=== PATIENT | female | born 1970 | race Caucasian/White ===

== ENCOUNTER 2016-08-20 21:33 | Day surgery (SDC) | payer BC ==
[2016-08-20] MEDS ORDERED: Sodium Chloride 0.9% 1,000 ML PRIMARY IV ONE (21:56)
[2016-08-20] MEDS ORDERED: GLUCAGON EMERGENCY KIT 1 MG KIT IVP ONE (21:57)
[2016-08-20] MEDS ORDERED: Lactated Ringers 1,000 ML PRIMARY IV ONE (22:44)
[2016-08-20] MEDS ORDERED: Lactated Ringers 1,000 ML PRIMARY IV SCH (22:45)
[2016-08-20] MEDS ORDERED: MIDAZOLAM 5 MG/1 ML ONE (23:07)
--- NOTE | 2016-08-20 23:10 | MINORPROC ---
Outpatient History & Physical Chief Complaint: Has food stuck in her throat Present Illness: Patient states 3 hours ago she is eating meat. She has a piece stuck in her throat. Dr. Camarillo (the ER doctor) has tried glucagon without any relief. She cannot handle her secretions. Patient has had this happen before but is always been able to get out Past History: Depression History: General: WNL, HEENT: WNL, Respiratory: WNL, Cardiovascular: WNL, Gastrointestinal: WNL Physical Exam: General: WNL, Head/Neck: WNL, Breasts: WNL, Chest/Lungs: WNL, Heart: WNL, Abdomen: WNL Home Medications: Home Medications Medication Instructions Recorded Confirmed Type Levocetirizine Dihydrochloride 5 mg PO DAILY #30 tab 09/21/15 Clinic [Xyzal] Bupropion HCl [Wellbutrin Xl] 1 tab PO DAILY #90 tab 10/26/15 Clinic Triamcinolone Acetonide 15 gm TOPICAL BID #1 tube 04/25/16 Clinic Methylphenidate HCl [Ritalin] 10 mg PO QID #120 tab NS 08/05/16 Clinic Allergies/Adverse Reactions: Allergies Allergy/AdvReac Type Severity Reaction Status Date / Time No Known Drug Allergies Allergy Unverified 07/13/16 11:44 Impression / Plan: Foreign body causing obstruction of esophagus Would recommend the patient have an EGD. The risk and potential complications of the procedure were discussed with the patient. We'll also remove the foreign body. They understood this. Also discussed alternatives diagnostic and treatment options. Will get the EGD set up at the first available date. Transfusion: Transfusion Not Anticipated Anesthesia Plans: Sedation
[2016-08-20] MEDS ORDERED: LANSOPRAZOLE 30 MG SOLUTAB PO ONE ×2 (23:28→23:59)
--- NOTE | 2016-08-20 23:40 | GEN.OPNOTE ---
EGD Operative Note Surgery Date: 08/20/16 Preoperative Diagnosis: Foreign body obstruction esophagus Postoperative Diagnosis: Form body obstructive esophagus. Gastritis Procedure: Esophagogastroduodenoscopy with removal of foreign body Surgeon: Chase Gamez MD Anesthesia Provider: Stacy Ovalle CRNA Anesthesia Type: MAC Indications: Patient is a piece of steak stuck in her throat Findings: Esophagus: Olympus video EGD scope inserted into the posterior pharynx. Under direct visualization esophagus. At the distal portion of esophagus patient had a piece of meat stuck. Is able to grasses of 3 prong grasper. We then removed the foreign body from the esophagus. I reintroduced the scope and was now able to push the remainder piece of meat into the stomach. She has what appears be acute inflammatory changes of the distal esophagus had the GE junction. No true stricture was noted GE Junction : GE junction proximal be 40 cm from the incisors Fundus : Scope retroflexed on itself revealing no abnormal pathology Body : The body of the stomach had acute inflammatory changes Prepyloric : Prepyloric areas free from disease Small Intestine : First and second portion of the duodenum free from disease A lubricated flexible upper endoscope was inserted and passed through the esophagus and stomach into the duodenum.
[2016-08-21 00:17] VITALS: TEMP 98.5
[2016-08-21 00:18] VITALS: RESP 16
--- NOTE | 2016-08-21 02:10 | PDOC ---
General Adult HPI - General Chief Complaint: General Medical Stated Complaint: FOOD STUCK IN THROAT Date Seen by Provider: 08/20/16 Time Seen by Provider: 21:50 Source: POSITIVE: Patient Exam Limitations: POSITIVE: No limitations Nurse's Notes Reviewed & Considered: Yes - History of Present Illness Initial Comment: The patient is a 45-year-old female. 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 Patient states that she has had approximately 8 similar episodes in the past, but she could "normally make the food passed by swallowing water". Patient is not able to swallow her saliva. She has some discomfort in the mid esophageal area. She has never had an endoscopy. Have you received a tetanus shot in the past 10 years?: Yes Body Location Affected: REPORTS: Other (Unable to swallow due to meat bolus impaction) Timing: REPORTS: Abrupt Duration: 1-3 hours (Onset 3 hours SINGE WINDER) Severity: Moderate Quality: REPORTS: "Pain" (Mid sternal area) Context: REPORTS: Other (Onset while eating meat) Modifying Factors: improves with: Nothing Similar Symptoms Previously: Yes (approximately 8 previous similar episodes which spontaneously resolved) Recent Care Received: REPORTS: Denies Any Prior Injuries Related to Current Complaint?: No - Patient Home Medications Home Medications: Home Medications Bupropion HCl [Wellbutrin Xl] 1 tab PO DAILY #90 tab 10/26/15 Lansoprazole [Prevacid] 30 mg PO DAILY #90 capsule. 08/20/16 - Patient Allergies Allergies/Adverse Reactions: Allergies Allergy/AdvReac Type Severity Reaction Status Date / Time No Known Drug Allergies Allergy Unverified 07/13/16 11:44 Past Medical History - heen HEENT History: Denies History Cardiovascular History: Denies History Respiratory History: Denies History Gastrointestinal History: Denies History Endocrine History: Denies History Musculoskeletal History: Denies History Neurological History: Denies History Blood Disorders: Denies History Psychiatric History: Anxiety Disorders History of Sexually Transmitted Diseases: No Female Reproductive History: Denies History Obstetrical History: Denies History Cancer History: Denies History In Past Year Been Physically Harmed or Verbally Threatened: No History of MDRO: No History of Other Communicable Diseases: No Tobacco Use: Former Smoker Alcohol Use: Occasionally Substance Use Type: None Previous Surgical History: Yes Type / Date of Surgery: RIGHT SHOULDER Anesthesia Reactions: No Malignant Hyperthermia: No Family History of Malignant Hyperthermia: No Significant Family History: No pertinent family hx Past Medical History Reviewed: Reviewed - No Changes ROS - Limitations ROS Limitations: No Limitations Constitution: REPORTS: Denies Symptoms Cardiovascular: REPORTS: Denies Cardiac Symptoms Respiratory: REPORTS: Denies Resp Symptoms Neurological: REPORTS: Denies Neuro Symptoms Gastrointestinal: REPORTS: Other (Unable to swallow) Endocrine: REPORTS: Denies Symptoms Musculoskeletal: REPORTS: Denies MS Symptoms Genitourinary: REPORTS: Denies Symptoms Eyes: REPORTS: Denies Symptoms ENT: REPORTS: Denies Symptoms Skin: REPORTS: Denies Skin Symptoms Lympathic: REPORTS: Denies Lympathic Symptoms Immunologic: POSITIVE: Denies Symptoms Psychiatric: POSITIVE: Denies Psych Symptoms General Adult Exam - General Appearance General Appearance: POSITIVE: Alert, Cooperative, No Acute Distress, No Evidence of Trauma - HEENT HEENT: POSITIVE: Head Inspection Nml, Eyes Inspection Nml, Ears Inspection Nml, Nose Inspection Nml, Oral/Dental Inspect. Nml, Pharynx Inspect. Nml, PERRL, EOMI - Neck Neck: POSITIVE: Normal Inspection, Thyroid Normal - Respiratory Respiratory: POSITIVE: No Respiratory Distress, Breath Sounds Normal, Chest Non- Tender - Cardiovascular Cardiovascular: POSITIVE: Regular Rate & Rhythm, No Murmur, No Gallop, PMI Normal Peripheral Pulses: Radial (R): 2+, Radial (L): 2+ - Abdomen Abdomen: Soft: (All Quadrants), Normal Bowel Sounds: (All Quadrants), Denies Tenderness: (All Quadrants), No Splenomegaly: (All Quadrants), No Hepatomegaly: (All Quadrants), No Guarding: (All Quadrants), No Rebound: (All Quadrants), No Palpable Pulse: (All Quadrants), No Palpabale Mass: (All Quadrants), No Distention: (All Quadrants), No Rigidity: (All Quadrants) - Back Back: POSITIVE: Normal Inspection - Skin Skin: POSITIVE: Normal Color, Warm, Dry, No Rash - Extremities Extremity: Non-Tender: (All Extremities), Normal ROM: (All Extremities), Normal Inspection: (All Extremities) - Neurological / Psychological Neurological: POSITIVE: Oriented X3, operator vacuum Normal As Tested, Motor Normal, Sensation Normal, 5, 6 General Adult Progress - Patient's Progress Pain Medication Addressed: POSITIVE: Not Applicable School/Work Release Addressed: POSITIVE: Not Applicable Re-Examine Time: 22:35 Re-Examine Comment: Patient given 1 g of glucagon IV without effect. Dr. Sofia, surgeon, contacted and arrangements made for esophagoscopy and removal of meat bolus esophageal impaction. Status: POSITIVE: Unchanged, Re-Examined Antibiotics Given: No - Consult Consult (If Yes, Name of Consulting MD & Time Called): Yes (Dr. Sofia, surgeon [id number],) Consulting MD will see pt:: POSITIVE: In ED Counseled: POSITIVE: Patient, Family, RE: DX, RE: Need for F/U Patient Care Time - Estimated PCT Patient Care Time (In Minutes): 30 Vital Signs - Recent Vital Signs Vital Signs: Vital Signs (Last 8 hours) Temp Pulse Pulse Resp BP BP Pulse Ox 08/21/16 00:00 98.5 F 08/20/16 23:50 64 16 101/65 08/20/16 23:40 98.8 F 71 14 105/58 08/20/16 21:33 97.3 F 69 18 126/85 93 - VS Reviewed Vital Signs Reviewed: Yes Discharge Clinical Impression: Obstruction of esophagus due to food impaction Discharge Disposition: Transferred to OR Condition: Fair Date Decision to Admit to Inpatient: 08/20/16 Time Decision to Admit to Inpatient: 22:35
== END 2016-08-21 | disposition home or self-care (01) ==
LOC: ER 21:33 → SDSC 23:09
PROVIDERS: ATTEND Surgery
DX: T18.128A Food in esophagus causing other injury, initial encounter (principal)
CPT/HCPCS: 43247; 96374; 99284 ×2; J1610; J2704; J2250; J7030; J7120